=== PATIENT | male | born 1955 | race Two or more races ===

== ENCOUNTER → 2024-03-12 | Outpatient (CLI) | payer OTHER, SELFPAY ==
[2024-03-12 08:50] LABS: Glucose Estimated Average 183 mg/dL (80-131)
[2024-03-12 09:05] LABS: Alanine Aminotransferase 22 U/L (10-49); Albumin, Serum 4.8 gm/dL (3.4-4.8); Alkaline Phosphatase 81 U/L (46-116); Anion Gap 8 (7-16); Aspartate Amino Transferase 11 U/L (0-34); BUN/Creatinine Ratio 18 Ratio (12-20); Bilirubin,Direct 0.2 mg/dL (0.0-0.3); Bilirubin,Total 0.8 mg/dL (0.3-1.2); Blood Urea Nitrogen 20 mg/dL (9-23); Calcium 9.6 mg/dL (8.3-10.6); Carbon Dioxide 27.3 mMol/L (20.0-31.0); Cardiac Risk Estimate 4.7 RATIO (4.0-6.7); Chloride 102 mMol/L (98-107); Cholesterol 227 mg/dL (132-200); Creatinine (Component) 1.1 mg/dL (0.6-1.3); Glucose 206 mg/dL (74-106); HDL Cholesterol 48 mg/dL (40-60); LDL Cholesterol,Calculated 142 mg/dL (0-130); Osmolality,Calculated 282 (275-295); Potassium 5.2 mMol/L (3.4-5.1); Sodium 137 mMol/L (136-145); Total Protein 7.2 gm/dL (5.7-8.2); Triglycerides 187 mg/dL (30-150); eGFR > 60 See Note
[2024-03-12 09:09] LABS: Creatinine MALB Rnd Ur 115 mg/dL (30-125); Microalbumin Creat Ratio 3 mg/gCrea (<30); Microalbumin, Random Urine 4 mg/L (0-300)
== END | disposition home or self-care (01) ==
PROVIDERS: PCP Family Medicine; Referring Provider Family Medicine; Visit Provider Family Medicine
DX: E11.9 Type 2 diabetes mellitus without complications (principal)
CPT/HCPCS: 36415; 80048; 80061; 80076; 82043; 82570; 83036

== ENCOUNTER → 2024-10-17 | Outpatient (CLI) | payer OTHER, SELFPAY ==
--- NOTE | 2024-10-17 15:30 | XR_ITS ---
Examination: Knee, right , 3 views Technique: Knee AP, lateral, oblique 3 views Date and time of exam: October 17, 2024 1840 hours INDICATIONS: Patient fell last month with injury to the knee, knee pain. FINDINGS: No fracture or dislocation Mild to moderate narrowing medial joint space Mild osteoarthritis patellofemoral joint IMPRESSION: No acute fracture
== END | disposition home or self-care (01) ==
LOC: CDIM 15:24
PROVIDERS: PCP Family Medicine; Referring Provider Family Medicine; Visit Provider Family Medicine
DX: S89.91XA Unspecified injury of right lower leg, initial encounter (principal); W19.XXXA Unspecified fall, initial encounter
CPT/HCPCS: 73562

== ENCOUNTER → 2024-11-06 | Outpatient (CLI) | payer OTHER, SELFPAY ==
[2024-11-06 08:51] LABS: Glucose Estimated Average 194 mg/dL (80-131); Hemoglobin A1C 8.4 % Hgb (4.8-6.0)
[2024-11-06 09:07] LABS: Creatinine MALB Rnd Ur 87 mg/dL (30-125); Microalbumin, Random Urine < 3 mg/L (0-300)
[2024-11-06 09:07] LABS: Alanine Aminotransferase 23 U/L (10-49); Albumin, Serum 4.4 gm/dL (3.4-4.8); Alkaline Phosphatase 83 U/L (46-116); Anion Gap 10 (7-16); Aspartate Amino Transferase < 8 U/L (0-34); BUN/Creatinine Ratio 22 Ratio (12-20); Bilirubin,Direct 0.2 mg/dL (0.0-0.3); Bilirubin,Total 0.6 mg/dL (0.3-1.2); Blood Urea Nitrogen 22 mg/dL (9-23); Calcium 9.8 mg/dL (8.3-10.6); Carbon Dioxide 27.2 mMol/L (20.0-31.0); Cardiac Risk Estimate 3.8 RATIO (4.0-6.7); Chloride 100 mMol/L (98-107); Cholesterol 166 mg/dL (132-200); Creatinine (Component) 1.0 mg/dL (0.6-1.3); Glucose 174 mg/dL (74-106); HDL Cholesterol 44 mg/dL (40-60); LDL Cholesterol,Calculated 86 mg/dL (0-130); Osmolality,Calculated 281 (275-295); Potassium 4.9 mMol/L (3.4-5.1); Sodium 137 mMol/L (136-145); Total Protein 6.8 gm/dL (5.7-8.2); Triglycerides 180 mg/dL (30-150); eGFR > 60 See Note
== END | disposition home or self-care (01) ==
LOC: COPL 07:17
PROVIDERS: PCP Family Medicine; Referring Provider Family Medicine; Visit Provider Family Medicine
DX: E11.42 Type 2 diabetes mellitus with diabetic polyneuropathy (principal); E78.5 Hyperlipidemia, unspecified
CPT/HCPCS: 36415; 80048; 80061; 80076; 82043; 82570; 83036

== ENCOUNTER → 2024-12-04 | Outpatient (CLI) | payer OTHER, SELFPAY ==
--- NOTE | 2024-12-04 | XR_ITS ---
Examination: Shoulder, left, 3 views Technique: Shoulder AP internal rotation, AP external rotation, Y view shoulder, 3 views Exam date and time : December 04, 2024 at 12:45 p.m. INDICATIONS: Left shoulder pain beginning 2 years ago. FINDINGS: No shoulder fracture or dislocation Moderate narrowing glenohumeral joint Moderate osteoarthritis of acromioclavicular joint IMPRESSION: Moderate narrowing glenohumeral joint
== END | disposition home or self-care (01) ==
PROVIDERS: PCP Family Medicine; Referring Provider Family Medicine; Visit Provider Family Medicine
DX: M25.812 Other specified joint disorders, left shoulder (principal)
CPT/HCPCS: 73030

== ENCOUNTER → 2025-01-03 | Outpatient (CLI) | payer OTHER, SELFPAY ==
--- NOTE | 2025-01-03 08:00 | XR_ITS ---
MRI shoulder, left, without contrast. Date and time: January 03, 2025, 0752 hours INDICATIONS: Left shoulder pain decreased range of motion joint clicking and stiffness 2 years Technique: Multiple axial, sagittal and coronal sections of the shoulder have been obtained. Siemens high-resolution 1.5 [employer] MRI scanner is utilized. Axial fat-suppressed sections, TR 2350, TE 18 T2-weighted coronal fat-saturated images, TR 3500, TE 7100 T1-weighted coronal images, TR 500, TE 15 T2-weighted sagittal fat-saturated images, TR 3500, TE 57 T1-weighted sagittal sections, TR 504, TE 13. Findings: Supraspinatus tendon insertion is intact. Infraspinatus tendon insertion is intact. Subscapularis insertion is intact. Subscapularis bursa is not seen. Long head of the biceps is in the bicipital groove. No definite tear of the biceps superior labral anchor is seen. Retraction of the musculotendinous junction of the rotator cuff is not seen . Tendinosis pattern is moderate. Distance between the acromium and humeral head is 6.8 mm Atrophy of the supraspinatus muscle is mild . Atrophy of the infraspinatus muscle is mild. Sagittal sections demonstrate a horizontal acromion. Acromioclavicular joint demonstrates significant osteoarthritis. Osacromiale is not identified. Fraying and irregularity anterior and posterior labral margins. Bony glenoid fossa on the sagittal sections does not demonstrate osseous defect. Occult fracture or area of avascular necrosis is not seen. Acromioclavicular joint separation is not visible. Defect in the posterolateral margin of the humeral head is not seen Impression: Rotator cuff intact Moderate rotator cuff tendinosis Significant osteoarthritis acromioclavicular joint Fraying and irregularity anterior superior posterior labral margins
== END | disposition home or self-care (01) ==
LOC: SMRI 07:34
PROVIDERS: PCP Family Medicine; Referring Provider Family Medicine; Visit Provider Family Medicine
DX: M67.814 Other specified disorders of tendon, left shoulder (principal); M19.012 Primary osteoarthritis, left shoulder; M25.812 Other specified joint disorders, left shoulder
CPT/HCPCS: 73221

== ENCOUNTER → 2025-02-18 | Outpatient (CLI) | payer OTHER, SELFPAY ==
[2025-02-18 09:36] LABS: Creatinine MALB Rnd Ur 125 mg/dL (30-125); Microalbumin Creat Ratio 3 mg/gCrea (<30); Microalbumin, Random Urine 4 mg/L (0-300)
[2025-02-18 09:48] LABS: Anion Gap 9 (7-16); BUN/Creatinine Ratio 16 Ratio (12-20); Blood Urea Nitrogen 16 mg/dL (9-23); Calcium 9.3 mg/dL (8.3-10.6); Carbon Dioxide 27.9 mMol/L (20.0-31.0); Chloride 105 mMol/L (98-107); Creatinine (Component) 1.0 mg/dL (0.6-1.3); Glucose 128 mg/dL (74-106); Osmolality,Calculated 286 (275-295); Potassium 4.7 mMol/L (3.4-5.1); Sodium 142 mMol/L (136-145); eGFR > 60 See Note
[2025-02-18 12:54] LABS: Glucose Estimated Average 154 mg/dL (80-131); Hemoglobin A1C 7.0 % Hgb (4.8-6.0)
== END | disposition home or self-care (01) ==
LOC: COPL 07:23
PROVIDERS: PCP Family Medicine; Referring Provider Orthopaedic Surgery; Visit Provider Family Medicine
DX: E11.3293 Type 2 diabetes mellitus with mild nonproliferative diabetic retinopathy without macular edema, bilateral (principal)
CPT/HCPCS: 36415; 80048; 82043; 82570; 83036